=== PATIENT | female | born 1970 | race African-American/Black ===

== ENCOUNTER 2023-03-11 09:23 | Day surgery (SDC) | payer BC ==
[2023-03-08 12:38] VITALS: BMI 41.1
[2023-03-11] MEDS ORDERED: PROPOFOL 40 ML ONE (10:06)
[2023-03-11] MEDS ORDERED: fentaNYL 50 mcg/mL 1 mL Vial ONE (10:19)
[2023-03-11] MEDS ORDERED: Lidocaine 1% PF 5 ML VIAL ONE (10:20)
== END 2023-03-11 11:15 | disposition home or self-care (01) ==
LOC: CSHSDC 09:23
PROVIDERS: ATTEND Internal Medicine Gastroenterology
PROC: 0DB38ZX Excision of Lower Esophagus, Via Natural or Artificial Opening Endoscopic, Diagnostic (ICD-10-PCS; principal; 2023-03-11)
DX: K21.00 Gastro-esophageal reflux disease with esophagitis, without bleeding (principal); M19.90 Unspecified osteoarthritis, unspecified site; D64.9 Anemia, unspecified; I10 Essential (primary) hypertension; M06.9 Rheumatoid arthritis, unspecified; E04.9 Nontoxic goiter, unspecified; Z88.2 Allergy status to sulfonamides; Z90.49 Acquired absence of other specified parts of digestive tract
CPT/HCPCS: 88305; J2704; J3010